=== PATIENT | male | born 1980 | race Caucasian/White ===

== ENCOUNTER 2021-05-24 09:22 | Emergency (ER) | payer MEDICAID, OTHER ==
[2021-05-24 09:34] VITALS: BP 146/80
--- NOTE | 2021-05-24 10:00 | ED Physician Documentation ---
PD HPI UPPER EXT INJURY - Stated complaint Stated Complaint: L SHOULDER INJ - Chief complaint Chief Complaint: Trauma Ext - History obtained from History obtained from: Patient - History of Present Illness Location: Left, Shoulder Type of injury: Twist ((he was on roof for repairs and slipped on ines. He reached for the peak to keep from sliding off and had twisting external and upward of the shoulder, with pain onset and feeling of a "pop". Hurts for lifting arm and reaching forward.)) Where injury occurred: Work Timing - onset: Yesterday Timing - duration: Days (2) Timing - details: Abrupt onset, Still present Worsened by: Moving Associated symptoms: No: Weakness, Numbness Similar symptoms before: Has not had sx before Recently seen: Not recently seen Review of Systems Skin: denies: Abrasion (s), Laceration (s) Neurologic: denies: Focal weakness, Numbness PD PAST MEDICAL HISTORY - Past Medical History Past Medical History: Yes Cardiovascular: None Respiratory: None Neuro: None Endocrine/Autoimmune: None GI: None : None HEENT: None Psych: None Musculoskeletal: None Derm: None - Past Surgical History Past Surgical History: Yes General: EGD - Present Medications Home Medications: Ambulatory Orders Medication Instructions Recorded Confirmed No Known Home Medications 05/24/21 05/24/21 - Allergies Allergies/Adverse Reactions: Allergies Allergy/AdvReac Type Severity Reaction Status Date / Time No Known Drug Allergies Allergy Verified 05/24/21 09:30 - Social History Does the pt smoke?: Yes Smoking Status: Current every day smoker Does the pt drink ETOH?: Yes ETOH Use: Beer Does the pt have substance abuse?: Yes Substance Use and Type: Marijuana - Immunizations Immunizations are current?: Yes PD ED PE NORMAL - Vitals Vital signs reviewed: Yes - General General: Alert and oriented X 3, Well developed/nourished, Other (appears uncomfortable with any ROM of the shoulder. ) - Derm Derm: Normal color, Warm and dry - Extremities Extremities: Other (shoulder does not feel dislocated. tender anteriorly. ROM against resistance hurts with most motions, but mainly abduction and extension. Shoulder tender anteriorly mainly. ) - Neuro Neuro: Alert and oriented X 3, No motor deficit, No sensory deficit Results - Vitals Vitals: Oxygen O2 Source Room air - Rads (name of study) left shoulder Radiology: Prelim report reviewed (no fractures nor dislocations.), See rad report PD MEDICAL DECISION MAKING - ED course Complexity details: considered differential (seems likely rotator cuff mechanism, but pain more anterior and ROM limited so exam difficult. ), d/w patient Departure - Departure Disposition: 01 Home, Self Care Clinical Impression: Left shoulder strain Qualifiers: Encounter type: initial encounter Qualified Code(s): S46.912A - Strain of unspecified muscle, fascia and tendon at shoulder and upper arm level, left arm, initial encounter Condition: Stable Record reviewed to determine appropriate education?: Yes Instructions: ED Sprain Shoulder Follow-Up: Silvio Colvin MD [Provider Admit Priv/Credential] - Comments: Your x-ray is normal without any signs of fracture nor dislocation. Mechanism rao would suggest rotator cuff injury though your main rotator cuff motions seem to be pretty good though hurting some. It may be that you just stretch the joint capsule and some of the larger muscle groupings and that should improve a little bit easier. A rotator cuff strain or partial tear could take several weeks to a month or more to heal up well. You would be good to see that this is healing up okay. Recheck with orthopedics if not improving well over the next week to 10 days. Use the sling for decrease motion of the shoulder and comfort. However you do not want the shoulder to "freeze up" which is healing of some of the fibers to the joint capsule. To prevent this, use gentle range of motion of the shoulder several times a day and not have it in the sling entirely straight all the time. Anti-inflammatory such as ibuprofen or naproxen 2-3 times a day for the next week. Add Tylenol if needed for pains. Minimal lifting, overhead reaching, push pull for the next couple of weeks. Again recheck if not really improving trending better over the next week or so. Discharge Date/Time: 05/24/21 11:02
--- NOTE | 2021-05-24 10:34 | XRAY Report ---
PROCEDURE: Shoulder 3 View LT INDICATIONS: twisting injury shoulder yesterday. TECHNIQUE: 3 views of the shoulder were acquired. COMPARISON: None. FINDINGS: Bones: No fractures or dislocations. No suspicious bony lesions. Visualized ribs appear intact. Soft tissues: No suspicious soft tissue calcifications. IMPRESSION: 1. No fracture or dislocation. Reviewed by: Angel Hollis MD on 05/24/2021 10:33 AM [facility] Approved by: Angel Hollis MD on 05/24/2021 10:33 AM [facility] Station ID: [id number]
[2021-05-24] MEDS ORDERED: IBUPROFEN 600 MG TABLET PO STA (10:36)
== END 2021-05-24 11:02 | disposition home or self-care (01) ==
LOC: ED 09:22
DX: S46.912A Strain of unspecified muscle, fascia and tendon at shoulder and upper arm level, left arm, initial encounter (principal); X50.1XXA Overexertion from prolonged static or awkward postures, initial encounter; Y93.89 Activity, other specified; Y99.0 Civilian activity done for income or pay; F17.200 Nicotine dependence, unspecified, uncomplicated
CPT/HCPCS: 73030; 99282; 99283; A9270